=== PATIENT | female | born 1970 | race Caucasian/White ===

== ENCOUNTER 2019-06-07 14:19 | Emergency (ER) | payer MEDICARE, MEDICAID ==
[~2019-06-07] VITALS: Ht 149 cm; Wt 120.0 kg
[~2019-06-07 14:19] MED LIST: ARIP400S3 IM; ASEN5TAB7 SL; BUDE10.2 IH; CALC-6 PO; CEFU500T PO; DEXT1CAP3 PO; FLAX100011 PO; GBPN300C PO; GBPN600T PO; HYDR25TA4 PO; KETO-22 PO; LORA0.5T PO; LOVA40TA2 PO; MTP100TCR PO; NITR-65 PO; OMEP40CA27 PO; ONDAN4ODT PO; QUET50TA PO; RT-ALBUINH IH; SERT50TA PO; TERB250T16 PO; TPR100T PO; VILA20TA PO
[2019-06-07] MEDS ORDERED: KETOROLAC 30 MG/ML VIAL IVP ONE (14:45)
[2019-06-07 14:47] LABS: BASOPHILS % (AUTO) 1 % (0-10); EOSINOPHILS # (AUTO) 0.1 10^3/uL (0.0-0.3); EOSINOPHILS % (AUTO) 1 % (0-10); HEMATOCRIT 42 % (35-52); HEMOGLOBIN 13.1 G/DL (11.5-16.0); LYMPHOCYTES # (AUTO) 2.1 X 10^3 (1.0-4.0); LYMPHOCYTES % (AUTO) 32 % (12-44); MEAN CORPUSCULAR HEMOGLOBIN 29 PG (25-34); MEAN CORPUSCULAR HGB CONC 32 G/DL (32-36); MEAN CORPUSCULAR VOLUME 94 FL (80-99); MEAN PLATELET VOLUME 11.9 FL (7.4-10.4); MONOCYTES # (AUTO) 0.6 X 10^3 (0.0-1.0); MONOCYTES % (AUTO) 9 % (0-12); NEUTROPHILS # (AUTO) 3.7 X 10^3 (1.8-7.8); NEUTROPHILS % (AUTO) 57 % (42-75); PLATELET COUNT 270 10^3/uL (130-400); RED CELL DISTRIBUTION WIDTH 15.4 % (10.0-14.5); WHITE BLOOD COUNT 6.6 10^3/uL (4.3-11.0)
--- NOTE | 2019-06-07 14:52 | Diagnostic Imaging Report ---
INDICATION: Chest pain. EXAMINATION: Portable chest at 2:46 PM. FINDINGS: There is a dual-chamber pacemaker. The heart size and pulmonary vascularity are normal. The lungs are clear. There are no effusions or pneumothoraces. IMPRESSION: Negative chest. Dictated by: Dictated on workstation # [id number]
[2019-06-07 14:58] LABS: INR 0.9 (0.8-1.4); PROTHROMBIN TIME PATIENT 12.1 SEC (12.2-14.7)
[2019-06-07 15:07] LABS: ALANINE AMINOTRANSFERASE 14 U/L (0-55); ALBUMIN 3.7 GM/DL (3.2-4.5); ALKALINE PHOSPHATASE 57 U/L (40-136); BILIRUBIN,TOTAL 0.2 MG/DL (0.1-1.0); BUN/CREATININE RATIO 8; CALCIUM 8.9 MG/DL (8.5-10.1); CARBON DIOXIDE 28 MMOL/L (21-32); CHLORIDE 104 MMOL/L (98-107); CREATININE SERUM 0.73 MG/DL (0.60-1.30); GFR ESTIMATED > 60; GLUCOSE 102 MG/DL (70-105); MAGNESIUM 1.6 MG/DL (1.6-2.4); POTASSIUM 4.5 MMOL/L (3.6-5.0); SODIUM 139 MMOL/L (135-145); TOTAL PROTEIN 6.6 GM/DL (6.4-8.2)
--- NOTE | 2019-06-07 15:16 | ED Chest Pain ---
General Chief Complaint: Chest Pain Stated Complaint: CHEST PAIN Nursing Triage Note: PT CO OF CHEST PAIN FOR 2 WEEKS L SIDE CHEST AFTER LIFTING HEAVY BOXES Nursing Sepsis Screen: No Definite Risk Source: patient Exam Limitations: no limitations History of Present Illness Date Seen by Provider: Jun 07, 2019 Time Seen by Provider: 14:23 Initial Comments This 49-year-old woman presents to the emergency room with 2 weeks of chest pain in the left upper chest. Does not seem to be exacerbated or alleviated by any particular factors. Pain seemed to have started after she was lifting some heavy boxes. She took Tylenol which was not helpful. Pain radiates into her neck. She has a pacemaker and a loop recorder. Dr. Marie is her primary care provider. She rates her pain as 7 out of 10. She does have some mild tenderness around her pacemaker. Allergies and Home Medications Allergies Coded Allergies: No Known Drug Allergies (Unverified , 08/28/10) Home Medications Albuterol Sulfate 8.5 Gm Hfa.aer.ad, 1 PUFF IH Q6H PRN for SHORTNESS OF BREATH, (Reported) Aripiprazole 400 Mg Suser.syr, 400 MG IM MONTHLY, (Reported) Budesonide/Formoterol Fumarate 10.2 Gm Hfa.aer.ad, 2 PUFF IH BID PRN for SHORTNESS OF BREATH, (Reported) Calcium Carbonate/Vitamin D3 1 Each Tablet, 2 TAB PO BID, (Reported) Cefuroxime Axetil 500 Mg Tablet, 500 MG PO BID Prescribed by: SALVADOR MARIE on 07/20/15 0732 Dextromethorphan HBr/Quinidine 1 Each Capsule, 1 CAP PO BID, (Reported) Flaxseed 1,000 Mg Capsule, 1,000 MG PO TID, (Reported) Gabapentin 600 Mg Tablet, 600 MG PO DAILY, (Reported) Gabapentin 600 Mg Tablet, 1,200 MG PO HS, (Reported) Hydrochlorothiazide 25 Mg Tablet, 25 MG PO DAILY, (Reported) Lovastatin 40 Mg Tablet, 40 MG PO DAILY, (Reported) Metoprolol Succinate 100 Mg Tab.er.24h, 100 MG PO DAILY, (Reported) Omeprazole 40 Mg Capsule.dr, 40 MG PO DAILY, (Reported) Terbinafine HCl 250 Mg Tablet, 250 MG PO DAILY, (Reported) Vilazodone Hydrochloride 20 Mg Tablet, 20 MG PO DAILY, (Reported) Patient Home Medication List Home Medication List Reviewed: Yes Review of Systems Review of Systems Constitutional: no symptoms reported EENTM: No Symptoms Reported Respiratory: No Symptoms Reported Cardiovascular: See HPI Gastrointestinal: No Symptoms Reported Genitourinary: No Symptoms Reported Musculoskeletal: see HPI Skin: no symptoms reported Psychiatric/Neurological: No Symptoms Reported Endocrine: No Symptoms Reported Hematologic/Lymphatic: No Symptoms Reported Past Sgjpvsi-Hlsqtw-Jpaiup Hx Past Med/Social Hx: Reviewed and Corrections made Patient Social History Alcohol Use: Occasionally Uses Recreational Drug Use: No Smoking Status: Current Everyday Smoker Type Used: Cigarettes Recent Foreign Travel: No Contact w/Someone Who Travel: No Recent Infectious Disease Expo: No Recent Hopitalizations: No Physical Abuse: No Sexual Abuse: No Immunizations Up To Date Date of Pneumonia Vaccine: Jul 19, 2011 Date of Influenza Vaccine: Feb 16, 2019 Past Medical History Surgeries: Yes (I&D OF LEFT BREAST ABSCESSES. 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 oz. 127.338409nd; 54.00 BMI Method:Stated General Appearance: No Apparent Distress, WD/WN HEENT: PERRL/EOMI, Normal ENT Inspection Neck: Normal Inspection; No JVD Respiratory: Lungs Clear, Normal Breath Sounds, No Accessory Muscle Use, No Respiratory Distress, Other (mild tenderness superior to the pacemaker) Cardiovascular: Regular Rate, Rhythm, No Edema, No Murmur Gastrointestinal: Normal Bowel Sounds, Non Tender, Soft Extremity: Normal Inspection, Non Tender, No Pedal Edema Neurologic/Psychiatric: Alert, Oriented x3, No Motor/Sensory Deficits, Normal Mood/Affect, special programs director II-XII Norm as Tested Skin: Normal Color, Warm/Dry Progress/Results/Core Measures Results/Orders Lab Results Laboratory Tests Test 06/07/19 14:30 Range/Units White Blood Count 6.6 4.3-11.0 10^3/uL Red Blood Count 4.45 4.35-5.85 10^6/uL Hemoglobin 13.1 11.5-16.0 G/DL Hematocrit 42 35-52 % Mean Corpuscular Volume 94 80-99 FL Mean Corpuscular Hemoglobin 29 25-34 PG Mean Corpuscular Hemoglobin Concent 32 32-36 G/DL Red Cell Distribution Width 15.4 H 10.0-14.5 % Platelet Count 270 130-400 10^3/uL Mean Platelet Volume 11.9 H 7.4-10.4 FL Neutrophils (%) (Auto) 57 42-75 % Lymphocytes (%) (Auto) 32 12-44 % Monocytes (%) (Auto) 9 0-12 % Eosinophils (%) (Auto) 1 0-10 % Basophils (%) (Auto) 1 0-10 % Neutrophils # (Auto) 3.7 1.8-7.8 X 10^3 Lymphocytes # (Auto) 2.1 1.0-4.0 X 10^3 Monocytes # (Auto) 0.6 0.0-1.0 X 10^3 Eosinophils # (Auto) 0.1 0.0-0.3 10^3/uL Basophils # (Auto) 0.0 0.0-0.1 10^3/uL Prothrombin Time 12.1 L 12.2-14.7 SEC INR Comment 0.9 0.8-1.4 Activated Partial Thromboplast Time 29 24-35 SEC Sodium Level 139 135-145 MMOL/L Potassium Level 4.5 3.6-5.0 MMOL/L Chloride Level 104 98-107 MMOL/L Carbon Dioxide Level 28 21-32 MMOL/L Anion Gap 7 5-14 MMOL/L Blood Urea Nitrogen 6 L 7-18 MG/DL Creatinine 0.73 0.60-1.30 MG/DL Estimat Glomerular Filtration Rate > 60 BUN/Creatinine Ratio 8 Glucose Level 102 70-105 MG/DL Calcium Level 8.9 8.5-10.1 MG/DL Corrected Calcium 9.1 8.5-10.1 MG/DL Magnesium Level 1.6 1.6-2.4 MG/DL Total Bilirubin 0.2 0.1-1.0 MG/DL Aspartate Amino Transf (AST/SGOT) 18 5-34 U/L Alanine Aminotransferase (ALT/SGPT) 14 0-55 U/L Alkaline Phosphatase 57 40-136 U/L Myoglobin 22.2 10.0-92.0 NG/ML Troponin I < 0.028 <0.028 NG/ML Total Protein 6.6 6.4-8.2 GM/DL Albumin 3.7 3.2-4.5 GM/DL My Orders Orders - RACHEAL BRODY MD Cbc With Automated Diff (06/07/19 14:23) Magnesium (06/07/19 14:23) Chest 1 View, Ap/Pa Only (06/07/19 14:23) Ekg Tracing (06/07/19 14:23) Comprehensive Metabolic Panel (06/07/19 14:23) Myoglobin Serum (06/07/19 14:23) Protime With Inr (06/07/19 14:23) Partial Thromboplastin Time (06/07/19 14:23) O2 (06/07/19 14:23) Monitor-Rhythm Ecg Trace Only (06/07/19 14:23) Ed Iv/Invasive Line Start (06/07/19 14:23) Ketorolac Injection (Toradol Injection) (06/07/19 14:45) Troponin I (06/07/19 14:23) Iv Push Filtration Supervisor Ed (06/07/19 ) Medications Given in ED Vital Signs/I&O 06/07/19 06/07/19 06/07/19 14:22 14:22 15:39 Temp 35.7 Pulse 85 85 Resp 20 20 B/P (MAP) 156/99 (118) 156/99 (118) Pulse Ox 93 93 O2 Delivery Room Air Room Air Blood Pressure Mean: 118 Progress Progress Note : Progress Note Workup was unremarkable. Pain improved from 7/10 down to 2/10 after Toradol. Initial ECG Impression Date: Jun 07, 2019 Initial ECG Impression Time: 14:21 Initial ECG Rate: 81 Initial ECG Impression: Normal Comment Normal sinus rhythm with no ST elevation or depression. No abnormal intervals or axis deviation. One PVC noted. Diagnostic Imaging Diagonstic Imaging: Xray Plain Films/CT/US/NM/MRI: chest Comments NAME: ROBBIE MONTEMAYOR [facility] REC#: [id number] PT STATUS: REG ER : 1970 PHYSICIAN: RACHEAL BRODY MD ADMIT DATE: 06/07/19/ER Draft Date of Exam:06/07/19 CHEST 1 VIEW, AP/PA ONLY INDICATION: Chest pain. EXAMINATION: Portable chest at 2:46 PM. FINDINGS: There is a dual-chamber pacemaker. The heart size and pulmonary vascularity are normal. The lungs are clear. There are no effusions or pneumothoraces. IMPRESSION: Negative chest. Dictated on workstation # [id number] Dict: 06/07/19 1449 Trans: 06/07/19 1452 [id number] Interpreted by: EZRA GRIER MD Departure Impression Primary Impression: Atypical chest pain Disposition: HOME, SELF-CARE Condition: Improved Departure-Patient Inst. Decision time for Depature: 15:22 Referrals: NO,LOCAL PHYSICIAN (PCP) Primary Care Physician Patient Instructions: Chest Pain That Is Not Caused by the Heart (DC) Add. Discharge Instructions: Follow-up with Dr. Marie for evaluation of your pacemaker as your pain seems to be near the pacemaker. Take ibuprofen up to 600 mg every 6 hours as needed for the next several days. You may add Tylenol (acetaminophen) up to 1000 mg every 6 hours as needed for additional pain relief. Follow-up with your primary care provider if this does not alleviate the pain by the end of the week. Return to the emergency room if you have worsening symptoms that require urgent attention. All discharge instructions reviewed with patient and/or family. Voiced understanding. Copy Copies To 1: SALVADOR MARIE MD, JOSHUA T MD Jun 07, 2019 15:16
--- NOTE | 2019-06-07 15:20 | NUR ---
PT AT LEVEL OF 2/10 FOR PAIN AFTER TORDOL
[2019-06-07 15:39] VITALS: BP 156/99
== END 2019-06-07 15:40 | disposition home or self-care (01) ==
LOC: EDUNIT# 14:19 → ER 14:20
DX: R07.89 Other chest pain (principal); J44.9 Chronic obstructive pulmonary disease, unspecified; F41.9 Anxiety disorder, unspecified; F43.10 Post-traumatic stress disorder, unspecified; F31.9 Bipolar disorder, unspecified; F17.210 Nicotine dependence, cigarettes, uncomplicated; Z90.710 Acquired absence of both cervix and uterus
CPT/HCPCS: 36415; 71045; 80053; 83735; 83874; 84484; 85025; 85610; 85730; 93005; 93041; 96374

== ENCOUNTER → 2021-05-04 | Outpatient (CLI) | payer MEDICAID, MEDICARE ==
[~2021-05-04] MED LIST changes: -CALC-6 PO; +CALC1TAB84 PO; -OMEP40CA27 PO; +OMEP40CA6 PO; -TERB250T16 PO; +TERB250T88 PO
== END ==
LOC: CARD 14:30
PROVIDERS: ATTEND Internal Medicine Cardiovascular Disease
DX: I10 Essential (primary) hypertension (principal)
CPT/HCPCS: 93306

== ENCOUNTER 2021-06-03 23:13 | Emergency (ER) | payer MEDICAID, MEDICARE ==
[~2021-06-03] VITALS: Ht 149 cm; Wt 110.0 kg
[2021-06-03 23:20] VITALS: BP 210/156
[2021-06-03] MEDS ORDERED: KETOROLAC 30 MG/ML VIAL IVP STA (23:38)
[2021-06-03] MEDS ORDERED: ASPIRIN 81 MG CHEW (CHILDREN'S ASA) PO ONE (23:45)
[2021-06-03] MEDS ORDERED: ASPIRIN 81 MG CHEW (CHILDREN'S ASA) ONE (23:48)
[2021-06-04 00:05] LABS: BASOPHILS # (AUTO) 0.1 10^3/uL (0.0-0.1); BASOPHILS % (AUTO) 1 % (0-10); EOSINOPHILS # (AUTO) 0.1 10^3/uL (0.0-0.3); EOSINOPHILS % (AUTO) 1 % (0-10); HEMATOCRIT 42 % (35-52); HEMOGLOBIN 13.6 g/dL (11.5-16.0); LYMPHOCYTES # (AUTO) 2.4 10^3/uL (1.0-4.0); LYMPHOCYTES % (AUTO) 24 % (12-44); MEAN CORPUSCULAR HEMOGLOBIN 30 pg (25-34); MEAN CORPUSCULAR HGB CONC 32 g/dL (32-36); MEAN CORPUSCULAR VOLUME 94 fL (80-99); MEAN PLATELET VOLUME 11.6 fL (9.0-12.2); MONOCYTES # (AUTO) 0.6 10^3/uL (0.0-1.0); MONOCYTES % (AUTO) 7 % (0-12); NEUTROPHILS # (AUTO) 6.6 10^3/uL (1.8-7.8); NEUTROPHILS % (AUTO) 67 % (42-75); PLATELET COUNT 258 10^3/uL (130-400); WHITE BLOOD COUNT 9.8 10^3/uL (4.3-11.0)
[2021-06-04 00:15] LABS: ALBUMIN 3.7 GM/DL (3.2-4.5); POTASSIUM 3.8 MMOL/L (3.6-5.0)
[2021-06-04 00:16] LABS: CALCIUM 9.1 MG/DL (8.5-10.1)
[2021-06-04 00:17] LABS: TOTAL PROTEIN 6.8 GM/DL (6.4-8.2)
--- NOTE | 2021-06-04 00:17 | ED Chest Pain ---
General Chief Complaint: Breast Complaints Stated Complaint: L BREAST PAIN Nursing Triage Note: Patient reports to ED for left breast pain that started yesterday. Denies injury. No self noted breast changes. Patient ambulated to room 07. Source: patient Exam Limitations: no limitations History of Present Illness Date Seen by Provider: Jun 03, 2021 Time Seen by Provider: 23:40 Initial Comments Here with report of left breast pain that has been going on since yesterday. She is concerned because she had nipple reconstruction about an years ago and that was due to a blocked gland. She does want to make sure that it is not that but does not know why she is having pain. States it is actually behind the breast and goes to her back on the left side. Denies nausea or vomiting. Denies fever or chills. She is not vaccinated for COVID. She does have implanted pacemaker and loop recorder and follows with Dr. Marie. Takes blood pressure medicines. Also has hyperlipidemia. She is morbidly obese. 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 NTG SL TOBACCO DRYING MACHINE OPERATOR: No Associated Symptoms: No abdominal pain; back pain; No diaphoresis, No edema, No fever/chills, No nausea/vomiting, No shortness of breath, No weakness Allergies and Home Medications Allergies Coded Allergies: No Known Drug Allergies (Unverified , 08/28/10) Patient Home Medication List Home Medication List Reviewed: Yes Albuterol Sulfate (Proair Hfa) 8.5 Gm Hfa.aer.ad, 1 PUFF IH Q6H PRN for SHORTNESS OF BREATH, (Reported) Entered as Reported by: ALEN BENNETT on 07/19/15 1128 Aripiprazole (Abilify Maintena) 400 Mg Suser.syr, 400 MG IM MONTHLY, (Reported) Entered as Reported by: ALEN BENNETT on 07/19/15 1128 Budesonide/Formoterol Fumarate (Symbicort 160-4.5 Mcg Inhaler) 10.2 Gm Hfa.ae r.ad, 2 PUFF IH BID PRN for SHORTNESS OF BREATH, (Reported) Entered as Reported by: ALEN BENNETT on 07/19/15 1128 Calcium Carbonate/Vitamin D3 (Calcium 600 + Vit D 200 Tablet) 1 Each Tablet, 2 TAB PO BID, (Reported) Entered as Reported by: ALEN BENNETT on 07/19/151121 Cefuroxime Axetil (Ceftin) 500 Mg Tablet, 500 MG PO BID Prescribed by: SALVADOR MARIE on 07/20/15 0732 Dextromethorphan HBr/Quinidine (Nuedexta 20-10 mg Capsule) 1 Each Capsule, 1 CAP PO BID, (Reported) Entered as Reported by: ALEN BENNETT on 07/19/151121 Flaxseed (Flaxseed Oil) 1,000 Mg Capsule, 1,000 MG PO TID, (Reported) Entered as Reported by: ALEN BENNETT on 07/19/151121 Gabapentin (Gabapentin) 600 Mg Tablet, 600 MG PO DAILY, (Reported) Entered as Reported by: ALEN BENNETT on 07/19/151121 Gabapentin (Gabapentin) 600 Mg Tablet, 1,200 MG PO HS, (Reported) Entered as Reported by: ALEN BENNETT on 07/19/151121 Hydrochlorothiazide (Hydrochlorothiazide) 25 Mg Tablet, 25 MG PO DAILY, (Reported) Entered as Reported by: ALEN BENNETT on 07/19/151121 Lovastatin (Lovastatin) 40 Mg Tablet, 40 MG PO DAILY, (Reported) Entered as Reported by: ALEN BENNETT on 07/19/151121 Metoprolol Succinate (Metoprolol Succinate) 100 Mg Tab.er.24h, 100 MG PO DAILY, (Reported) Entered as Reported by: ALEN BENNETT on 07/19/151121 Omeprazole (Omeprazole) 40 Mg Capsule.dr, 40 MG PO DAILY, (Reported) Entered as Reported by: ALEN BENNETT on 07/19/151121 Terbinafine HCl (Terbinafine HCl) 250 Mg Tablet, 250 MG PO DAILY, (Reported) Entered as Reported by: ALEN BENNETT on 07/19/151121 Vilazodone Hydrochloride (Viibryd) 20 Mg Tablet, 20 MG PO DAILY, (Reported) Entered as Reported by: ALEN BENNETT on 07/19/151121 Review of Systems Review of Systems Constitutional: see HPI; No chills, No fever EENTM: No Nose Congestion, No Nose Pain, No Throat Pain Respiratory: Denies Cough, Denies Shortness of Air Cardiovascular: Chest Pain; Denies Edema Gastrointestinal: No Symptoms Reported; Denies Diarrhea, Denies Nausea, Denies Vomiting Genitourinary: No Symptoms Reported Musculoskeletal: back pain, muscle pain Skin: No change in color, No lesions Psychiatric/Neurological: Anxiety; Denies Weakness All Other Systems Reviewed Negative Unless Noted: Yes Past Neibqss-Dkatzw-Lueshc Hx Patient Social History Tobacco Use?: Yes Tobacco type used: Cigarettes Smoking Status: Current Everyday Smoker Substance use?: No Alcohol Use?: No Pt feels they are or have been: No Past Medical History Surgery/Hospitalization HX: Pace maker and loop recorder placed 2009. Reconstructive nipple surgery 2009 due to clogged duct. Surgeries: Yes (I&D OF LEFT BREAST ABSCESSES. 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 oz. 127.717569pe; 49.00 BMI Method:Stated General Appearance: Mild Distress, Obese HEENT: PERRL/EOMI, Pharynx Normal Neck: Non Tender, Supple Respiratory: Lungs Clear, Normal Breath Sounds, Other (Pain to left upper chest and seems mostly centered around pacemaker site that radiates to her back.) Cardiovascular: Regular Rate, Rhythm, No Murmur Gastrointestinal: Non Tender, Soft Extremity: Normal Range of Motion, Non Tender Neurologic/Psychiatric: Alert, Oriented x3 Skin: Normal Color, Warm/Dry Progress/Results/Core Measures Results/Orders Lab Results Laboratory Tests Test 06/03/21 23:45 06/04/21 00:01 Range/Units White Blood Count 9.8 4.3-11.0 10^3/uL Red Blood Count 4.47 3.80-5.11 10^6/uL Hemoglobin 13.6 11.5-16.0 g/dL Hematocrit 42 35-52 % Mean Corpuscular Volume 94 80-99 fL Mean Corpuscular Hemoglobin 30 25-34 pg Mean Corpuscular Hemoglobin Concent 32 32-36 g/dL Red Cell Distribution Width 13.4 10.0-14.5 % Platelet Count 258 130-400 10^3/uL Mean Platelet Volume 11.6 9.0-12.2 fL Immature Granulocyte % (Auto) 0 % Neutrophils (%) (Auto) 67 42-75 % Lymphocytes (%) (Auto) 24 12-44 % Monocytes (%) (Auto) 7 0-12 % Eosinophils (%) (Auto) 1 0-10 % Basophils (%) (Auto) 1 0-10 % Neutrophils # (Auto) 6.6 1.8-7.8 10^3/uL Lymphocytes # (Auto) 2.4 1.0-4.0 10^3/uL Monocytes # (Auto) 0.6 0.0-1.0 10^3/uL Eosinophils # (Auto) 0.1 0.0-0.3 10^3/uL Basophils # (Auto) 0.1 0.0-0.1 10^3/uL Immature Granulocyte # (Auto) 0.0 0.0-0.1 10^3/uL Prothrombin Time 11.9 L 12.2-14.7 SEC INR Comment 0.8 0.8-1.4 Activated Partial Thromboplast Time 30 24-35 SEC Sodium Level 140 135-145 MMOL/L Potassium Level 3.8 3.6-5.0 MMOL/L Chloride Level 106 98-107 MMOL/L Carbon Dioxide Level 24 21-32 MMOL/L Anion Gap 10 5-14 MMOL/L Blood Urea Nitrogen 9 7-18 MG/DL Creatinine 0.73 0.60-1.30 MG/DL Estimat Glomerular Filtration Rate 100 BUN/Creatinine Ratio 12 Glucose Level 102 70-105 MG/DL Calcium Level 9.1 8.5-10.1 MG/DL Corrected Calcium 9.3 8.5-10.1 MG/DL Magnesium Level 1.8 1.6-2.4 MG/DL Total Bilirubin 0.2 0.1-1.0 MG/DL Aspartate Amino Transf (AST/SGOT) 15 5-34 U/L Alanine Aminotransferase (ALT/SGPT) 14 0-55 U/L Alkaline Phosphatase 72 40-136 U/L Myoglobin 21.0 10.0-92.0 NG/ML Troponin I < 0.028 <0.028 NG/ML Total Protein 6.8 6.4-8.2 GM/DL Albumin 3.7 3.2-4.5 GM/DL Lipase 30 8-78 U/L Influenza Type A (RT-PCR) Not Detected Not Detecte Influenza Type B (RT-PCR) Not Detected Not Detecte SARS-CoV-2 RNA (RT-PCR) Not Detected Not Detecte My Orders Orders - EZRA VELÁSQUEZ MD Cbc With Automated Diff (06/03/21 23:38) Magnesium (06/03/21 23:38) Ekg Tracing (06/03/21 23:38) Comprehensive Metabolic Panel (06/03/21 23:38) Myoglobin Serum (06/03/21:38) Protime With Inr (06/03/21 23:38) Partial Thromboplastin Time (06/03/21 23:38) O2 (06/03/21 23:38) Monitor-Rhythm Ecg Trace Only (06/03/21 23:38) Lipid Panel (06/04/21 06:00) Ed Iv/Invasive Line Start (06/03/21 23:38) Troponin I Kathrine (06/03/21 23:38) Aspirin Chewable Tablet (Baby Aspirin Ch (06/03/21 23:45) Ketorolac Injection (Toradol Injection) (06/03/21 23:38) Covid 19 Inhouse Test (06/03/21 23:49) Influenza A And B By Pcr (06/03/21 23:49) Aspirin Chewable Tablet (Baby Aspirin Ch (06/03/21 23:48) Chest 1 View, Ap/Pa Only (06/04/21 00:01) Lipase (06/04/21 01:04) Metoprolol Succinate (Xl) Tab (Toprol Xl (06/04/21 01:15) Medications Given in ED Current Medications Medications Dose Ordered Sig/Amanda Route Start Time Stop Time Status Last Admin Dose Admin Aspirin 324 mg ONCE ONCE PO 06/03/21 23:45 06/03/21 23:51 DC 06/04/21 00:03 324 MG Metoprolol Succinate 25 mg ONCE ONCE PO 06/04/21 01:15 06/04/21 01:16 DC 1/17/22 01:18 25 MG Vital Signs/I&O 06/03/21 06/03/21 23:20 23:20 Temp 36.6 36.6 Pulse 87 87 Resp 22 22 B/P (MAP) 210/156 210/156 (174) Pulse Ox 98 98 O2 Delivery Room Air Room Air Blood Pressure Mean: 174 Progress Progress Note : Progress Note Seen and evaluated. IV, labs, EKG and chest x-ray ordered. ASA 324 mg p.o. and Toradol 30 mg IV. Monitor patient. Reviewed previous echo which shows normal EF and pulmonary hypertension. Reviewed last heart catheterization in 2016 which showed nonobstructive disease. 0141: We have added lipase which is negative. All initial labs are really looking pretty good without any significant abnormalities and troponin is negative. Patient is improved with respect to pain. She does admit to a fall a few days ago and this may be because of the muscular skeletal pain. After 2 days of pain, troponin being negative is reassuring. I did discuss all of this with her. She agrees. She has appointment with her primary care doctor on the and can follow-up with Dr. Marie as well. We did give an additional dose of metoprolol 25 mg of the XL version p.o. and her blood pressure has improved with rest and after starting that medicine. Overall, safe for discharge home with follow-up. Discharged home with return precautions. Patient verbalized understanding instructions and agreement with plan. Initial ECG Impression Date: Jun 03, 2021 Initial ECG Impression Time: 23:28 Initial ECG Rate: 83 Initial ECG Rhythm: Normal Sinus Comment Sinus rhythm with right atrial enlargement. Normal but rightward axis. No evidence of ST elevation FL. Similar to previous of 06/07/2019. Interpreted by me. Diagnostic Imaging Diagonstic Imaging: Xray Plain Films/CT/US/NM/MRI: chest Comments No obvious infiltrate. Pacemaker noted. Otherwise no acute findings. Departure Impression Primary Impression: Chest pain Qualified Codes: R07.9 - Chest pain, unspecified Disposition: HOME, SELF-CARE Condition: Stable Departure-Patient Inst. Decision time for Depature: 01:44 Referrals: NO,LOCAL PHYSICIAN (PCP) Primary Care Physician Patient Instructions: Chest Pain (DC), Chest Pain That Is Not Caused by the Heart (DC) Add. Discharge Instructions: All discharge instructions reviewed with patient and/or family. Voiced understanding. Continue home medications as previously prescribed. You may take Tylenol/acetaminophen and/or ibuprofen as needed for pain. You should call and make appointment with Dr. Marie's office this week for recheck and further evaluation. Keep appointment on the as scheduled with your primary care physician. Return for worse pain, fever, vomiting, weakness, breathing problems or other concerns as needed. EZRA VELÁSQUEZ MD Jun 04, 2021 00:17
[2021-06-04 00:19] LABS: BILIRUBIN,TOTAL 0.2 MG/DL (0.1-1.0)
[2021-06-04 00:21] LABS: CREATININE SERUM 0.73 MG/DL (0.60-1.30)
[2021-06-04 00:24] LABS: MAGNESIUM 1.8 MG/DL (1.6-2.4)
[2021-06-04 00:39] LABS: INR 0.8 (0.8-1.4); PROTHROMBIN TIME PATIENT 11.9 SEC (12.2-14.7)
--- NOTE | 2021-06-04 07:20 | Diagnostic Imaging Report ---
INDICATION: Chest pain. Comparison made with prior examination of 06/07/2019. FINDINGS: The heart size normal. Lungs are clear. No pleural effusion or pneumothorax. Mediastinum is unremarkable. Pacemaker overlies left hemithorax. IMPRESSION: No acute cardiopulmonary abnormality. Dictated by: Dictated on workstation # [id number]
== END 2021-06-04 02:13 | disposition home or self-care (01) ==
LOC: EDUNIT# 23:13 → ER 23:15
DX: R07.9 Chest pain, unspecified (principal); G47.30 Sleep apnea, unspecified; J44.9 Chronic obstructive pulmonary disease, unspecified; F41.9 Anxiety disorder, unspecified; F31.9 Bipolar disorder, unspecified; E66.9 Obesity, unspecified; I25.10 Atherosclerotic heart disease of native coronary artery without angina pectoris; F17.210 Nicotine dependence, cigarettes, uncomplicated; Z20.822 Contact with and (suspected) exposure to COVID-19; Z68.42 Body mass index [BMI] 45.0-49.9, adult; Z79.899 Other long term (current) drug therapy
CPT/HCPCS: 36415; 71045; 80053; 83690; 83735; 83874; 84484; 85025; 85610; 85730; 87636; 93005; 93041; 96374

== ENCOUNTER → 2021-06-13 | Outpatient (CLI) | payer MEDICAID ==
[2021-06-13 11:48] LABS: POTASSIUM 4.3 MMOL/L (3.6-5.0)
[2021-06-13 11:49] LABS: ALBUMIN 3.7 GM/DL (3.2-4.5)
[2021-06-13 11:51] LABS: TOTAL PROTEIN 6.9 GM/DL (6.4-8.2)
[2021-06-13 11:53] LABS: BILIRUBIN,TOTAL 0.2 MG/DL (0.1-1.0)
[2021-06-13 11:55] LABS: CREATININE SERUM 0.67 MG/DL (0.60-1.30)
== END ==
LOC: LAB 11:02
PROVIDERS: ATTEND Internal Medicine Cardiovascular Disease
DX: E78.2 Mixed hyperlipidemia (principal)
CPT/HCPCS: 36415; 80053; 80061